=== PATIENT | male | born 2000 | race Caucasian/White ===

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

== ENCOUNTER 2018-04-22 06:58 | Emergency (ER) | payer OTHER ==
[2018-04-22] MEDS ORDERED: TYLENOL 325 MG PO ONE (07:17)
--- NOTE | 2018-04-22 07:21 | ERPHSYRPT ---
- History of Present Illness Time Seen by Provider: 04/22/18 08:29 Source: patient Exam Limitations: no limitations Patient Subjective Stated Complaint: pt c/o non-productive cough and fever since 2 days ago. denies nasal congestion, denies vomiting. Triage Nursing Assessment: [place]/warm/dry, resp easy, a&ox4, steady gait, dry cough noted, no distress at this time. Physician History: 17-year-old white male arrives with complaint of sore throat cough fever pain in the back symptoms for 2 days. Denies vomiting states she's had some nausea. Past medical history is negative. Past surgical history includes tonsillectomy and adenoidectomy. Social history positive tobacco positive alcohol denies illicit drugs. Timing/Duration: day(s) (2 days) Cough Quality/Degree: dry cough Possible Cause: no prior episodes Modifying Factors: Improves With: nothing Associated Symptoms: fever, cough, sore throat, No chills, No chest pain/ soreness, No dizziness, No earache, No facial pain, No headache, No lightheadedness, No muscle aches, No nasal congestion, No nasal drainage, No shortness of breath, No sinus infection, No wheezing International travel in last 2 weeks: No Allergies/Adverse Reactions: vancomycin Allergy (Verified 04/22/18 07:14) Rash Hx Tetanus, Diphtheria Vaccination/Date Given: Yes Hx Influenza Vaccination/Date Given: No Hx Pneumococcal Vaccination/Date Given: No Immunizations Up to Date: Yes - Review of Systems Constitutional: Fever, No Chills, No Fatigue, No Lethargy, No Malaise, No Night Sweats, No Weakness, No Weight Loss Eyes: No Symptoms Ears, Nose, & Throat: No Ear Pain, No Ear Discharge, No Hearing Changes, No Tinnitus, No Nose Pain, No Nose Congestion, No Nose Discharge, No Sinus Drainage , No Epistaxis, No Mouth Pain, No Mouth Swelling, No Loose Teeth, No Throat Swelling, No Hoarse, No Painful Swallowing, No Snoring, No Stridor Respiratory: Cough, No Cyanosis, No Dyspnea, No Dyspnea on Exertion (HUNT), No Stridor, No Wheezing Cardiac: No Chest Pain, No Edema, No Syncope Abdominal/Gastrointestinal: No Abdominal Pain, No Nausea, No Vomiting, No Diarrhea Genitourinary Symptoms: No Dysuria Musculoskeletal: Back Pain, No Neck Pain Skin: No Rash Neurological: No Dizziness, No Focal Weakness, No Sensory Changes Psychological: No Symptoms Endocrine: No Symptoms All Other Systems: Reviewed and Negative - Past Medical History Pertinent Past Medical History: No Neurological History: No Pertinent History ENT History: No Pertinent History Cardiac History: No Pertinent History Respiratory History: Asthma, Other Endocrine Medical History: No Pertinent History Musculoskeletal History: No Pertinent History GI Medical History: Hemorrhoids History: No Pertinent History Psycho-Social History: No Pertinent History Male Reproductive Disorders: No Pertinent History Other Medical History: 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, possbily has had a hemorrhoid was positive for H1N1 at age 8 - Past Surgical History Past Surgical History: Yes Neuro Surgical History: No Pertinent History Cardiac: No Pertinent History Respiratory: No Pertinent History Gastrointestinal: No Pertinent History Genitourinary: No Pertinent History Musculoskeletal: No Pertinent History Male Surgical History: No Pertinent History - Social History Smoking Status: Current every day smoker Exposure to second hand smoke: Yes Alcohol Use: None Drug Use: none Patient Lives Alone: No Significant Family History: no pertinent family hx - Nursing Vital Signs Nursing Vital Signs: Initial Vital Signs Temperature 102.1 F 04/22/18 07:05 Pulse Rate 92 H 04/22/18 07:05 Respiratory Rate 18 04/22/18 07:05 Blood Pressure 117/72 04/22/18 07:05 O2 Sat by Pulse Oximetry 94 L 04/22/18 07:05 Pain Scale Pain Intensity 0 - Physical Exam General Appearance: no apparent distress, alert, other (well-developed well- nourished white male, frequent cough) Eye Exam: PERRL/EOMI, eyes nml inspection, other (undi are unremarkable) Ears, Nose, Throat Exam: TMs normal, moist mucous membranes, pharyngeal erythema , No pharynx normal (throat erythematous), No dry mucous membranes, No TM abnormal (R), No TM abnormal (L) Neck Exam: normal inspection Respiratory Exam: normal breath sounds, lungs clear, No respiratory distress Cardiovascular Exam: regular rate/rhythm, normal heart sounds, capillary refill <2 sec Gastrointestinal/Abdomen Exam: soft, No tenderness Back Exam: normal inspection, No CVA tenderness, No vertebral tenderness Extremity Exam: normal inspection, normal range of motion Neurologic Exam: alert, oriented x 3, cooperative, doula II-XII nml as tested, normal mood/affect, sensation nml, No motor deficits Skin Exam: normal color, warm, dry, No rash Lymphatic Exam: No adenopathy SpO2 Interpretation: normal (94%) SpO2: 94 - Course Nursing assessment & vital signs reviewed: Yes - Radiology Exams Chest X-ray Interpretation: Interpreted by me (chest x-ray: no acute disease process noted) Ordered Tests: Active Orders 24 hr Category Date Time Status CHEST 1 VIEW (PORTABLE) Stat Exams 04/22/18 07:17 Taken Medication Summary Discontinued Medications Generic Name Dose Route Start Last Admin Trade Name Clarissa PRN Reason Stop Dose Admin Acetaminophen 975 mg 04/22/18 07:17 04/22/18 07:23 Tylenol 325 Mg PO 04/22/18 07:18 975 mg STAT ONE Administration Acetaminophen Confirm 04/22/18 07:22 Tylenol 325 Mg Administered 04/22/18 07:23 Dose 975 mg .ROUTE .STK-MED ONE Oseltamivir Phosphate 75 mg 04/22/18 08:21 04/22/18 08:26 Tamiflu 75mg Capsule PO 04/22/18 08:22 75 mg STAT ONE Administration Lab/Rad Data: Laboratory Results 04/22/18 Range/Units 07:36 Influenza Type A Ag POSITIVE (NEGATIVE) Influenza Type B Ag NEGATIVE (NEGATIVE) RSV (PCR) NEGATIVE (Negative) Group A Strep Antibody NEGATIVE (NEGATIVE) - Progress Progress: improved Air Movement: fair Progress Note: 04/22/18 08:22 Patient is positive for influenza A. Strep is negative. Chest x-ray (my read) no acute disease process noted. Patient is given Tylenol for his fever. Will continue Tylenol every 4 hours Motrin every 6 hours for fever plenty of fluids Tamiflu 75 mg twice a day for 5 days. Will give patient a work slip for today and tomorrow. Patient to follow-up with his family . symptoms are worse no better in 48 hours or persist longer than a week. - Departure Time of Disposition: 08:23 Departure Disposition: Home Clinical Impression: Cough, Influenza A Fever Qualifiers: Fever type: unspecified Qualified Code(s): R50.9 - Fever, unspecified Condition: Fair Critical Care Time: No Referrals: COREY ELLIS [Primary Care Provider] - Additional Instructions: Return home. Plenty of fluids. Tylenol every 4 hours as needed for temperature greater than 100.5 or pain. Motrin every 6 hours as needed for temperature greater than 100.5 or pain. Tamiflu as prescribed. [id number] cough medications as needed. Follow-up with your family doctor if symptoms are worse, no better in 72 hours, or persist longer than one week. Return for acute distress or for severe symptoms. Prescriptions: Oseltamivir 75 mg [Tamiflu 75MG Capsule] 75 mg PO BID #10 cap
[2018-04-22] MEDS ORDERED: TYLENOL 325 MG ONE (07:22)
[2018-04-22 07:31] VITALS: O2SAT 94
[2018-04-22 08:18] LABS: Group A Strep NEGATIVE (NEGATIVE); INFLUENZA A POSITIVE (NEGATIVE)
[2018-04-22 08:19] LABS: INFLUENZA B NEGATIVE (NEGATIVE); RESPIRATORY SYNCTIAL VIRUS NEGATIVE (Negative)
[2018-04-22] MEDS ORDERED: Tamiflu 75MG Capsule PO ONE ×2 (08:21→08:26)
[2018-04-22 08:30] VITALS: BP 111/68; PULSE 85
--- NOTE | 2018-04-22 08:42 | XRAY ---
Exam: AP upright portable chest film from 04/22/2018. Comparison: AP portable chest film from 10/24/2016. Indication: Cough and fever. Findings: The heart size and contour are normal. The korey and mediastinal structures appear intact. The lungs are well expanded. No air space infiltrates, vascular congestion, pneumothorax, or pleural fluid is seen. No acute osseous process is seen. Impression: 1. No air space infiltrates to suggest focal pneumonia or other acute cardiopulmonary disease is seen, no change from 10/24/2016.
== END 2018-04-22 08:34 | disposition home or self-care (01) ==
LOC: ED 06:58
DX: J10.1 Influenza due to other identified influenza virus with other respiratory manifestations (principal); R50.9 Fever, unspecified; J45.909 Unspecified asthma, uncomplicated
CPT/HCPCS: 71045; 87631; 87651; 99284; A9270-GY

== ENCOUNTER 2019-10-17 18:26 | Emergency (ER) | payer OTHER ==
[2019-10-17] MEDS ORDERED: Zofran 4 MG/2 ML VIAL IV ONE (18:50)
[2019-10-17] MEDS ORDERED: Sodium Chloride 0.9% 1000 ML 1,000 ML IV STA (18:50)
[2019-10-17 19:12] LABS: Absolute Neutrophil Ct (ANC) 10.52 (1.4-6.9); BASOPHIL % 0.2 % (0.0-0.4); Basophil (Absolute #) 0.02 (0-0.4); Eosinophil % 1.4 % (0.00-5.0); Eosinophil (Absolute #) 0.17 (0-0.5); Hematocrit 48.4 % (42-50); Hemoglobin 16.6 gm/dl (12.5-18.0); Lymphocyte (Absolute #) 0.46 (1.0-4.6); Lymphocytes % 3.9 % (24.0-44.0); Mean Cell Volume 91.1 fl (78-100); Mean Corpuscular Hemoglobin 31.3 pg (26-32); Mean Corpuscular Hgb Concent. 34.3 g/dl (32-36); Mean Platelet Volume 9.7 fl (7.5-11.0); Monocyte (Absolute #) 0.61 (0.0-1.3); Monocytes % 5.2 % (0.0-12.0); Neutrophil % 89.3 % (36.0-66.0); Platelet Count 263 K/mm3 (150-450); Red Blood Count 5.31 M/mm3 (4.1-5.6); Red Cell Distribution Width 12.9 % (11.5-14.0); White Blood Count 11.8 K/mm3 (4.0-10.5)
[2019-10-17 19:20] LABS: ALBUMIN 4.4 g/dL (3.5-5.0); ALKALINE PHOSPHATASE 51 U/L (38-126); AMYLASE 71 U/L (30-110); ANION GAP 11.4 MEQ/L (5-15); BLOOD UREA NITROGEN 11 mg/dL (9-20); CHLORIDE 104 mmol/L (98-107); Calcium 9.5 mg/dL (8.4-10.2); Carbon Dioxide 26 mmol/L (22-30); Creatinine 1 0.83 mg/dL (0.66-1.25); EST GLOMERULAR FILTRATION RATE > 60.0 ML/MIN; Glucose 108 mg/dL (74-106); LDH-LACTATE DEHYDROGENASE 88 U/L (120-246); LIPASE 36 U/L (23-300); Potassium 3.9 mmol/L (3.5-5.1); SGOT/AST 49 U/L (17-59); SGPT/ALT 22 U/L (0-50); SODIUM 138 mmol/L (137-145); Total Protein 7.4 g/dL (6.3-8.2)
[2019-10-17 19:28] LABS: Appearance SLIGHTLY CLOUDY (CLEAR); Bilirubin NEGATIVE (NEGATIVE); Blood NEGATIVE Ery/ul (0-5); Glucose NEGATIVE (NEGATIVE); Ketones TRACE (NEGATIVE); Leukocyte Esterase NEGATIVE (NEGATIVE); Mucus MANY /HPF (NEGATIVE); Nitrite NEGATIVE (NEGATIVE); Protein,Urine Dip 30 (Negative); Specific Gravity 1.034 (1.005-1.025); Urobilinogen NEGATIVE mg/dL (0-1)
[2019-10-17] MEDS ORDERED: Zofran 4 MG/2 ML VIAL ONE (19:31)
[2019-10-17] MEDS ORDERED: Sodium Chloride 0.9% 1000 ML 1,000 ML ONE (19:31)
[2019-10-17 19:42] LABS: Slide Review 1 YES
[2019-10-17 20:14] VITALS: O2SAT 99
--- NOTE | 2019-10-17 20:37 | ERPHSYRPT ---
- History of Present Illness Time Seen by Provider: 10/17/19 18:40 Historian: patient Exam Limitations: no limitations Patient Subjective Stated Complaint: Pt states "My mom was positive for covid and it has been 21 days and today I woke up and started to vomit and have di arrhea and I feel horrible." Triage Nursing Assessment: Pt presented alert and orietned X 3, skin pwd. Pt ambulates with an uprigth steady gait, able to speak in clear full sentences. Pt in no apparent respiratory distress. Physician History: Is a 19-year-old male who presents with a complaint of vomiting and diarrhea. This started this morning. His mother just finished 21 days isolation for COVID positive disease he denies any fever he has had some pain some headache and some dizziness. Timing/Duration: today Activities at Onset: none Quality: cramping Pain Radiation: no radiation Severity of Pain-Max: moderate Severity of Pain-Current: moderate Modifying Factors: Improves With: nothing Associated Symptoms: diarrhea, nausea, vomiting Previous symptoms: no prior history Allergies/Adverse Reactions: vancomycin Allergy (Verified 04/22/18 07:14) Rash Hx Tetanus, Diphtheria Vaccination/Date Given: Yes Hx Influenza Vaccination/Date Given: No Hx Pneumococcal Vaccination/Date Given: No Immunizations Up to Date: Yes Travel Risk - International Travel Have you traveled outside of the country in past 3 weeks: No - Coronavirus Screening Are you exhibiting any of the following symptoms?: Yes Symptoms: Fever, Vomiting/Diarrhea Close contact with a COVID-19 positive Pt in past 14-21 Days: Yes - Review of Systems Constitutional: No Fever, No Chills Eyes: No Symptoms Ears, Nose, & Throat: No Symptoms Respiratory: No Cough, No Dyspnea Cardiac: No Chest Pain, No Edema, No Syncope Abdominal/Gastrointestinal: Abdominal Pain, Nausea, Vomiting, Diarrhea Genitourinary Symptoms: No Dysuria Musculoskeletal: No Back Pain, No Neck Pain Skin: No Rash Neurological: No Dizziness, No Focal Weakness, No Sensory Changes Psychological: No Symptoms Endocrine: No Symptoms All Other Systems: Reviewed and Negative - Past Medical History Pertinent Past Medical History: Yes Neurological History: No Pertinent History ENT History: No Pertinent History Cardiac History: No Pertinent History Respiratory History: Asthma, Other Endocrine Medical History: No Pertinent History Musculoskeletal History: No Pertinent History GI Medical History: Hemorrhoids History: No Pertinent History Psycho-Social History: No Pertinent History Male Reproductive Disorders: No Pertinent History Other Medical History: 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, possbily has had a hemorrhoid was positive for H1N1 at age 8 - Past Surgical History Past Surgical History: Yes Neuro Surgical History: No Pertinent History Cardiac: No Pertinent History Respiratory: No Pertinent History Gastrointestinal: No Pertinent History Genitourinary: No Pertinent History Musculoskeletal: No Pertinent History Male Surgical History: No Pertinent History - Social History Smoking Status: Current every day smoker How long have you smoked: vape Exposure to second hand smoke: Yes Alcohol Use: None Drug Use: none Patient Lives Alone: No Significant Family History: no pertinent family hx - Nursing Vital Signs Nursing Vital Signs: Initial Vital Signs Temperature 98.4 F 10/17/19 18:36 Pulse Rate 60 10/17/19 18:36 Respiratory Rate 20 10/17/19 18:36 Blood Pressure 121/62 10/17/19 18:36 O2 Sat by Pulse Oximetry 99 10/17/19 18:36 Pain Scale Pain Intensity 3 - Physical Exam General Appearance: no apparent distress, alert Eye Exam: PERRL/EOMI, eyes nml inspection Ears, Nose, Throat Exam: normal ENT inspection, pharynx normal, moist mucous membranes Neck Exam: normal inspection, non-tender, supple, full range of motion Respiratory Exam: normal breath sounds, lungs clear, No respiratory distress Cardiovascular Exam: regular rate/rhythm, normal heart sounds Gastrointestinal/Abdomen Exam: soft, No tenderness, No mass Back Exam: normal inspection, normal range of motion, No CVA tenderness, No vertebral tenderness Extremity Exam: normal inspection, normal range of motion, pelvis stable Neurologic Exam: alert, oriented x 3, cooperative, normal mood/affect, nml cerebellar function, sensation nml, No motor deficits Skin Exam: normal color, warm, dry SpO2: 99 - Course Nursing assessment & vital signs reviewed: Yes Ordered Tests: Active Orders 24 hr Category Date Time Status IV Insertion STAT Care 10/17/19 18:50 Active AMYLASE Stat Lab 10/17/19 19:09 Completed CBC W DIFF Stat Lab 10/17/19 19:09 Completed CMP Stat Lab 10/17/19 19:09 Completed D-DIMER QUANTITATIVE Stat Lab 10/17/19 19:09 Completed LDH-LACTATE DEHYDROGENASE Stat Lab 10/17/19 19:09 Completed LIPASE Stat Lab 10/17/19 19:09 Completed Lactic Acid Stat Lab 10/17/19 18:50 Completed UA W/RFX UR CULTURE Stat Lab 10/17/19 19:14 Completed Medication Summary Discontinued Medications Generic Name Dose Route Start Last Admin Trade Name Clarissa PRN Reason Stop Dose Admin Sodium Chloride 1,000 mls @ 999 mls/hr 10/17/19 18:50 10/17/19 19:32 Sodium Chloride 0.9% 1000 Ml IV 10/17/19 19:50 999 mls/hr .Q1H1M STA Administration Sodium Chloride Confirm 10/17/19 19:31 Sodium Chloride 0.9% 1000 Ml Administered 10/17/19 19:32 Dose 1,000 mls @ ud .ROUTE .STK-MED ONE Ondansetron HCl 4 mg 10/17/19 18:50 10/17/19 19:32 Zofran 4 Mg/2 Ml Vial IV 10/17/19 18:51 4 mg STAT ONE Administration Ondansetron HCl Confirm 10/17/19 19:31 Zofran 4 Mg/2 Ml Vial Administered 10/17/19 19:32 Dose 4 mg .ROUTE .STK-MED ONE Lab/Rad Data: Laboratory Result Diagrams 10/17/19 19:09 10/17/19 19:09 Laboratory Results 10/17/19 10/17/19 10/17/19 Range/Units 19:14 19:09 19:09 WBC (4.0-10.5) K/mm3 RBC (4.1-5.6) M/mm3 Hgb (12.5-18.0) gm/dl Hct (42-50) % MCV (78-100) fl MCH (26-32) pg MCHC (32-36) g/dl RDW (11.5-14.0) % Plt Count (150-450) K/mm3 MPV (7.5-11.0) fl Gran % (36.0-66.0) % Eos # (Auto) (0-0.5) Absolute Lymphs (auto) (1.0-4.6) Absolute Monos (auto) (0.0-1.3) Lymphocytes % (24.0-44.0) % Monocytes % (0.0-12.0) % Eosinophils % (0.00-5.0) % Basophils % (0.0-0.4) % Absolute Granulocytes (1.4-6.9) Basophils # (0-0.4) D-Dimer 346 (215-500) ng/mL Sodium 138 (137-145) mmol/L Potassium 3.9 (3.5-5.1) mmol/L Chloride 104 (98-107) mmol/L Carbon Dioxide 26 (22-30) mmol/L Anion Gap 11.4 (5-15) MEQ/L BUN 11 (9-20) mg/dL Creatinine 0.83 (0.66-1.25) mg/dL Estimated GFR > 60.0 ML/MIN Glucose 108 H (74-106) mg/dL Lactic Acid (0.4-2.0) Calcium 9.5 (8.4-10.2) mg/dL Total Bilirubin 1.30 (0.2-1.3) mg/dL AST 49 (17-59) U/L ALT 22 (0-50) U/L Alkaline Phosphatase 51 (38-126) U/L Lactate Dehydrogenase 88 L (120-246) U/L Serum Total Protein 7.4 (6.3-8.2) g/dL Albumin 4.4 (3.5-5.0) g/dL Amylase 71 (30-110) U/L Lipase 36 (23-300) U/L Urine Color [place]W (YELLOW) Urine Appearance SLIGHTLY CLOUDY (CLEAR) Urine pH 5.0 (5-6) Ur Specific [place] 1.034 (1.005-1.025) Urine Protein 30 (Negative) Urine Ketones TRACE (NEGATIVE) Urine Blood NEGATIVE (0-5) Darwin/ul Urine Nitrite NEGATIVE (NEGATIVE) Urine Bilirubin NEGATIVE (NEGATIVE) Urine Urobilinogen NEGATIVE (0-1) mg/dL Ur Leukocyte Esterase NEGATIVE (NEGATIVE) Urine WBC (Auto) NONE (0-5) /HPF Urine RBC (Auto) NONE (0-2) /HPF U Epithel Cells (Auto) NONE (FEW) /HPF Urine Bacteria (Auto) NONE (NEGATIVE) /HPF Urine Mucus (Auto) MANY (NEGATIVE) /HPF Urine Culture Reflexed NO (NO) Urine Glucose NEGATIVE (NEGATIVE) mg/dL Slides for Path Review 10/17/19 10/17/19 Range/Units 19:09 18:50 WBC 11.8 H (4.0-10.5) K/mm3 RBC 5.31 (4.1-5.6) M/mm3 Hgb 16.6 (12.5-18.0) gm/dl Hct 48.4 (42-50) % MCV 91.1 (78-100) fl MCH 31.3 (26-32) pg MCHC 34.3 (32-36) g/dl RDW 12.9 (11.5-14.0) % Plt Count 263 (150-450) K/mm3 MPV 9.7 (7.5-11.0) fl Gran % 89.3 H (36.0-66.0) % Eos # (Auto) 0.17 (0-0.5) Absolute Lymphs (auto) 0.46 L (1.0-4.6) Absolute Monos (auto) 0.61 (0.0-1.3) Lymphocytes % 3.9 L (24.0-44.0) % Monocytes % 5.2 (0.0-12.0) % Eosinophils % 1.4 (0.00-5.0) % Basophils % 0.2 (0.0-0.4) % Absolute Granulocytes 10.52 H (1.4-6.9) Basophils # 0.02 (0-0.4) D-Dimer (215-500) ng/mL Sodium (137-145) mmol/L Potassium (3.5-5.1) mmol/L Chloride (98-107) mmol/L Carbon Dioxide (22-30) mmol/L Anion Gap (5-15) MEQ/L BUN (9-20) mg/dL Creatinine (0.66-1.25) mg/dL Estimated GFR ML/MIN Glucose (74-106) mg/dL Lactic Acid 1.0 (0.4-2.0) Calcium (8.4-10.2) mg/dL Total Bilirubin (0.2-1.3) mg/dL AST (17-59) U/L ALT (0-50) U/L Alkaline Phosphatase (38-126) U/L Lactate Dehydrogenase (120-246) U/L Serum Total Protein (6.3-8.2) g/dL Albumin (3.5-5.0) g/dL Amylase (30-110) U/L Lipase (23-300) U/L Urine Color (YELLOW) Urine Appearance (CLEAR) Urine pH (5-6) Ur Specific [place] (1.005-1.025) Urine Protein (Negative) Urine Ketones (NEGATIVE) Urine Blood (0-5) Darwin/ul Urine Nitrite (NEGATIVE) Urine Bilirubin (NEGATIVE) Urine Urobilinogen (0-1) mg/dL Ur Leukocyte Esterase (NEGATIVE) Urine WBC (Auto) (0-5) /HPF Urine RBC (Auto) (0-2) /HPF U Epithel Cells (Auto) (FEW) /HPF Urine Bacteria (Auto) (NEGATIVE) /HPF Urine Mucus (Auto) (NEGATIVE) /HPF Urine Culture Reflexed (NO) Urine Glucose (NEGATIVE) mg/dL Slides for Path Review YES - Progress Progress: improved - Departure Departure Disposition: Home Clinical Impression: Suspected COVID-19 virus infection Condition: Stable Critical Care Time: No Referrals: COREY ELLIS [Primary Care Provider] - Instructions: Viral Gastroenteritis, Adult (DC) Prescriptions: Ondansetron HCl [Zofran] 4 mg PO Q6H PRN #20 tablet PRN Reason: Nausea/Vomiting
[2019-10-17 21:18] VITALS: BP 121/64; PULSE 67
== END 2019-10-17 21:20 | disposition home or self-care (01) ==
LOC: ED 18:26
DX: R19.7 Diarrhea, unspecified (principal); Z20.828 Contact with and (suspected) exposure to other viral communicable diseases
CPT/HCPCS: 36000; 36415; 80053; 81001; 82150; 83605; 83615; 83690; 85025; 85379; 86140; 96360; 96374; 99284; U0003; J2405